=== PATIENT | female | born 1995 | race Caucasian/White ===

== ENCOUNTER 2016-06-05 21:09 | Emergency (ER) | payer MEDICAID ==
[2014-09-10 05:46] VITALS: BMI 33.5
[~2016-06-05 21:09] MED LIST: ACETAMINOPHEN500 M1 PO; CYCLOBENZAPRINE10 MG PO; FERROUS SULFAT325 MG PO; HYDROCODONE-APA1 TAB PO; IBUPROFEN600 MG PO; MOTRIN600 MG PO; PERCOCET 10/3251 TA1 PO; PRENATAL COMPLE1 TAB PO; PRENAVITE1 TAB PO; TRANDATE100 MG PO; ZOFRAN4 MG PO
== END 2016-06-05 23:00 | disposition home or self-care (01) ==
LOC: D.ER 21:09
DX: J06.9 Acute upper respiratory infection, unspecified (principal); F17.200 Nicotine dependence, unspecified, uncomplicated

== ENCOUNTER 2016-06-24 13:37 | Emergency (ER) | payer MEDICAID ==
[2014-09-10 05:46] VITALS: BMI 33.5
== END 2016-06-24 18:31 | disposition home or self-care (01) ==
LOC: D.ER 13:37
DX: J06.9 Acute upper respiratory infection, unspecified (principal); J20.9 Acute bronchitis, unspecified; F17.200 Nicotine dependence, unspecified, uncomplicated

== ENCOUNTER 2016-10-02 20:25 | Emergency (ER) | payer MEDICAID ==
[2014-09-10 05:46] VITALS: BMI 33.5
[2016-10-02 21:26] LABS: BASOPHILS 0.2 % (0-2); EOSINOPHILS 7.7 % (0-7); HEMATOCRIT 38.8 % (36.0-48.0); HEMOGLOBIN 12.9 g/dL (12-16); IMMATURE GRANULOCYTES 0.1 % (0-5); LYMPHOCYTES 24.9 % (15-50); MCH 30.3 pg (26.0-34.0); MCHC 33.2 g/dL (31.0-37.0); MCV 91.1 fL (80.0-100.0); MEAN PLATELET VOLUME 10.3 fL (7.4-10.4); MONOCYTES 4.4 % (2-11); NEUTROPHILS 62.7 % (40-80); PLATELET COUNT 219 10x3/uL (130-400); RBC 4.26 10x6/uL (4.00-5.40); RDW 12.8 % (11.5-14.5); WBC 8.3 10x3/uL (4.8-10.8)
[2016-10-02 21:44] LABS: ALBUMIN 4.1 g/dL (3.4-5.0); ALKALINE PHOSPHATASE 127 U/L (46-116); ALT (SGPT) 20 U/L (10-68); BILIRUBIN - TOTAL 0.25 mg/dL (0.2-1.3); CALC OSMOLALITY 279 mosm/kg (275-300); CALCIUM 8.8 mg/dL (8.5-10.1); CARBON DIOXIDE 22.6 mmol/L (21.0-32.0); CHLORIDE - SERUM 106 mmol/L (98-107); CREATININE - SERUM 0.6 mg/dL (0.6-1.3); GLUCOSE 115 mg/dL (74-106); POTASSIUM - SERUM 3.4 mmol/L (3.5-5.1); PROTEIN - SERUM 7.5 g/dL (6.4-8.2); SODIUM 141 mmol/L (136-145); UREA NITROGEN 6 mg/dL (7-18); eGFR NON AFRICAN AMERICAN > 90 mL/min (90-120)
[2016-10-02 21:49] LABS: TROPONIN-I < 0.017 ng/mL (0.000-0.060)
== END 2016-10-02 22:23 | disposition home or self-care (01) ==
LOC: D.ER 20:25
PROVIDERS: Nurse Practitioner Family
DX: M79.602 Pain in left arm (principal)

== ENCOUNTER 2016-10-21 14:38 | Emergency (ER) | payer MEDICAID ==
[2014-09-10 05:46] VITALS: BMI 33.5
== END 2016-10-21 16:05 | disposition home or self-care (01) ==
LOC: D.ER 14:38
DX: T60.1X1A Toxic effect of halogenated insecticides, accidental (unintentional), initial encounter (principal); F17.200 Nicotine dependence, unspecified, uncomplicated; R11.0 Nausea

== ENCOUNTER 2018-04-20 23:07 | Emergency (ER) | payer SELFPAY ==
[~2018-04-20] VITALS: Ht 162.6 cm; Wt 60.9 kg
[2018-04-20 23:14] VITALS: Ht 162.6 cm; Wt 60.9 kg
[2018-04-21 00:09] LABS: HEMATOCRIT 36.9 % (36.0-48.0); HEMOGLOBIN 12.5 g/dL (12-16); MCHC 33.9 g/dL (31.0-37.0); MCV 88.7 fL (80.0-100.0); MEAN PLATELET VOLUME 10.1 fL (7.4-10.4); NEUTROPHILS 66.3 % (40-80); PLATELET COUNT 204 10x3/uL (130-400); RBC 4.16 10x6/uL (4.00-5.40); RDW 13.3 % (11.5-14.5); WBC 7.3 10x3/uL (4.8-10.8)
[2018-04-21 00:26] LABS: HCG URINE NEGATIVE (NEGATIVE)
[2018-04-21 00:30] LABS: APPEARANCE HAZY (CLEAR); BILIRUBIN NEGATIVE (NEGATIVE); COLOR YELLOW (YELLOW); GLUCOSE NEGATIVE (NEGATIVE); KETONE NEGATIVE (NEGATIVE); NITRITE NEGATIVE (NEGATIVE); PROTEIN NEGATIVE (NEGATIVE); SPECIFIC GRAVITY 1.025 (1.005-1.020); UROBILINOGEN NORMAL (NORMAL)
[2018-04-21 00:35] LABS: ALBUMIN 3.9 g/dL (3.4-5.0); ALKALINE PHOSPHATASE 104 U/L (46-116); ALT (SGPT) 15 U/L (10-68); BILIRUBIN - TOTAL 0.41 mg/dL (0.2-1.3); CALC OSMOLALITY 285 mosm/kg (275-300); CARBON DIOXIDE 25.8 mmol/L (21.0-32.0); CHLORIDE - SERUM 108 mmol/L (98-107); CREATININE - SERUM 0.6 mg/dL (0.6-1.3); GLUCOSE 97 mg/dL (74-106); LIPASE 228 U/L (73-393); POTASSIUM - SERUM 3.9 mmol/L (3.5-5.1); PROTEIN - SERUM 7.2 g/dL (6.4-8.2); SODIUM 143 mmol/L (136-145); TROPONIN-I < 0.017 ng/mL (0.000-0.060); UREA NITROGEN 14 mg/dL (7-18); eGFR NON AFRICAN AMERICAN > 90 mL/min (90-120)
[2018-04-21 00:38] LABS: UDS - AMPHET NEGATIVE QUAL (NEGATIVE); UDS - BARB NEGATIVE QUAL (NEGATIVE); UDS - BENZO NEGATIVE QUAL (NEGATIVE); UDS - COCAINE NEGATIVE QUAL (NEGATIVE); UDS - OPIATE NEGATIVE QUAL (NEGATIVE); UDS - PCP NEGATIVE QUAL (NEGATIVE); UDS - THC POSITIVE QUAL (NEGATIVE)
[2018-04-21 01:14] VITALS: BP 112/74
== END 2018-04-21 01:14 | disposition home or self-care (01) ==
LOC: D.ER 23:07
PROVIDERS: Family Medicine
DX: N91.2 Amenorrhea, unspecified (principal); R11.0 Nausea; R10.32 Left lower quadrant pain; F17.200 Nicotine dependence, unspecified, uncomplicated

== ENCOUNTER 2018-05-24 10:31 | Emergency (ER) | payer MEDICAID ==
[~2018-05-24] VITALS: Ht 162.6 cm; Wt 65.9 kg
[2018-05-24 10:33] VITALS: BP 124/82; Ht 162.6 cm; Wt 65.9 kg
[2018-05-24 11:02] LABS: APPEARANCE HAZY (CLEAR); BILIRUBIN NEGATIVE (NEGATIVE); COLOR YELLOW (YELLOW); GLUCOSE NEGATIVE (NEGATIVE); KETONE NEGATIVE (NEGATIVE); NITRITE NEGATIVE (NEGATIVE); PROTEIN NEGATIVE (NEGATIVE); UROBILINOGEN NORMAL (NORMAL)
[2018-05-24 11:03] LABS: HCG URINE NEGATIVE (NEGATIVE)
[2018-05-24 11:04] LABS: HEMATOCRIT 39.8 % (36.0-48.0); HEMOGLOBIN 13.3 g/dL (12-16); LYMPHOCYTES 25.4 % (15-50); MCH 29.7 pg (26.0-34.0); MCHC 33.4 g/dL (31.0-37.0); MCV 88.8 fL (80.0-100.0); MEAN PLATELET VOLUME 9.3 fL (7.4-10.4); NEUTROPHILS 69.3 % (40-80); PLATELET COUNT 192 10x3/uL (130-400); RBC 4.48 10x6/uL (4.00-5.40); RDW 13.6 % (11.5-14.5); WBC 4.4 10x3/uL (4.8-10.8)
[2018-05-24 11:12] LABS: ALKALINE PHOSPHATASE 124 U/L (46-116); ALT (SGPT) 38 U/L (10-68); BILIRUBIN - TOTAL 0.35 mg/dL (0.2-1.3); CALC OSMOLALITY 279 mosm/kg (275-300); CALCIUM 8.6 mg/dL (8.5-10.1); CARBON DIOXIDE 25.3 mmol/L (21.0-32.0); CHLORIDE - SERUM 104 mmol/L (98-107); CREATININE - SERUM 0.7 mg/dL (0.6-1.3); GLUCOSE 96 mg/dL (74-106); POTASSIUM - SERUM 3.9 mmol/L (3.5-5.1); PROTEIN - SERUM 8.1 g/dL (6.4-8.2); SODIUM 141 mmol/L (136-145); UREA NITROGEN 11 mg/dL (7-18); eGFR NON AFRICAN AMERICAN > 90 mL/min (90-120)
[2018-05-24 11:20] LABS: BACTERIA FEW /hpf (NONE SEEN); CALCIUM OXALATE CRYSTALS 0-5 /hpf (NONE SEEN); EPITHELIAL CELLS 0-5 /hpf (0-5); MUCUS <1+ /lpf (NONE SEEN); RED CELLS - URINE RARE /hpf (0-5); WHITE CELLS - URINE 0-5 /hpf (0-5)
== END 2018-05-24 14:40 | disposition home or self-care (01) ==
LOC: D.ER 10:31
PROVIDERS: Family Medicine
DX: N91.2 Amenorrhea, unspecified (principal); F17.200 Nicotine dependence, unspecified, uncomplicated

== ENCOUNTER 2018-07-04 20:19 | Emergency (ER) | payer MEDICAID ==
[~2018-07-04] VITALS: Ht 162.6 cm; Wt 65.9 kg
[2018-07-04 20:26] VITALS: Ht 162.6 cm; Wt 65.9 kg
[2018-07-04] MEDS ORDERED: TORADOL10 MG PO (21:55)
[2018-07-04 22:19] VITALS: BP 118/73
== END 2018-07-04 22:20 | disposition home or self-care (01) ==
LOC: D.ER 20:19
DX: M94.0 Chondrocostal junction syndrome [Tietze] (principal); F17.210 Nicotine dependence, cigarettes, uncomplicated

== ENCOUNTER 2018-09-02 11:52 | Emergency (ER) | payer MEDICAID ==
[~2018-09-02] VITALS: Ht 162.6 cm; Wt 65.9 kg
[~2018-09-02 11:52] MED LIST changes: +TORADOL10 MG PO
[2018-09-02 12:33] VITALS: Ht 162.6 cm; Wt 65.9 kg
[2018-09-02] MEDS ORDERED: OMNICEF300 MG PO (13:45)
[2018-09-02 14:28] VITALS: BP 109/67
== END 2018-09-02 14:28 | disposition home or self-care (01) ==
LOC: D.ER 11:52
DX: H66.92 Otitis media, unspecified, left ear (principal); J40 Bronchitis, not specified as acute or chronic; J06.9 Acute upper respiratory infection, unspecified

== ENCOUNTER 2019-01-27 07:04 | Emergency (ER) | payer MEDICAID ==
[~2019-01-27] VITALS: Ht 162.6 cm; Wt 65.9 kg
[~2019-01-27 07:04] MED LIST changes: +OMNICEF300 MG PO
[2019-01-27 07:09] VITALS: BP 112/73; Ht 162.6 cm; Wt 65.9 kg
[2019-01-27] MEDS ORDERED: ZPAK PO (07:38)
[2019-01-27] MEDS ORDERED: NAPROSYN500 MG PO (07:38)
== END 2019-01-27 07:44 | disposition home or self-care (01) ==
LOC: D.ER 07:04
DX: J40 Bronchitis, not specified as acute or chronic (principal)

== ENCOUNTER 2019-02-02 11:55 | Emergency (ER) | payer MEDICAID ==
[~2019-02-02] VITALS: Ht 162.6 cm; Wt 65.9 kg
[~2019-02-02 11:55] MED LIST changes: +NAPROSYN500 MG PO; +ZPAK PO
[2019-02-02 12:06] VITALS: Ht 162.6 cm; Wt 65.9 kg
[2019-02-02 12:30] LABS: BASOPHILS 0.6 % (0-2); EOSINOPHILS 5.7 % (0-7); HEMOGLOBIN 12.6 g/dL (12-16); LYMPHOCYTES 30.1 % (15-50); MCH 30.8 pg (26.0-34.0); MCHC 33.2 g/dL (31.0-37.0); MCV 92.9 fL (80.0-100.0); MEAN PLATELET VOLUME 9.9 fL (7.4-10.4); MONOCYTES 8.5 % (2-11); NEUTROPHILS 55.1 % (40-80); PLATELET COUNT 185 10x3/uL (130-400); RBC 4.09 10x6/uL (4.00-5.40); WBC 3.5 10x3/uL (4.8-10.8)
[2019-02-02 12:42] LABS: CALC OSMOLALITY 276 mosm/kg (275-300); CALCIUM 8.8 mg/dL (8.5-10.1); CARBON DIOXIDE 27.5 mmol/L (21.0-32.0); CHLORIDE - SERUM 105 mmol/L (98-107); CREATININE - SERUM 0.7 mg/dL (0.6-1.3); GLUCOSE 90 mg/dL (74-106); POTASSIUM - SERUM 3.3 mmol/L (3.5-5.1); SODIUM 140 mmol/L (136-145); UREA NITROGEN 8 mg/dL (7-18); eGFR NON AFRICAN AMERICAN > 90 mL/min (90-120)
[2019-02-02 12:56] LABS: ALKALINE PHOSPHATASE 102 U/L (46-116); ALT (SGPT) 15 U/L (10-68); BILIRUBIN - TOTAL 0.64 mg/dL (0.2-1.3); PROTEIN - SERUM 7.7 g/dL (6.4-8.2)
[2019-02-02] MEDS ORDERED: MUCINEX DM ER1 EAC1 PO (13:04)
[2019-02-02] MEDS ORDERED: STERAPRED DS 1010 MG PO (13:04)
[2019-02-02 13:31] VITALS: BP 115/64
== END 2019-02-02 13:32 | disposition home or self-care (01) ==
LOC: D.ER 11:55
PROVIDERS: Family Medicine
DX: J02.9 Acute pharyngitis, unspecified (principal); J40 Bronchitis, not specified as acute or chronic; F17.210 Nicotine dependence, cigarettes, uncomplicated

== ENCOUNTER 2019-02-10 16:56 | Emergency (ER) | payer MEDICAID ==
[~2019-02-10] VITALS: Ht 162.6 cm; Wt 65.9 kg
[~2019-02-10 16:56] MED LIST changes: +MUCINEX DM ER1 EAC1 PO; +STERAPRED DS 1010 MG PO
[2019-02-10 17:41] VITALS: Ht 162.6 cm; Wt 65.9 kg
[2019-02-10] MEDS ORDERED: AMOXICILLIN500 M1 PO (17:44)
[2019-02-10 20:25] VITALS: BP 118/68
== END 2019-02-10 20:25 | disposition home or self-care (01) ==
LOC: D.ER 16:56
DX: J02.8 Acute pharyngitis due to other specified organisms (principal)

== ENCOUNTER 2019-05-08 18:57 | Emergency (ER) | payer MEDICAID ==
[~2019-05-08] VITALS: Ht 162.6 cm; Wt 69.1 kg
[~2019-05-08 18:57] MED LIST changes: +AMOXICILLIN500 M1 PO
[2019-05-08 19:10] VITALS: Ht 162.6 cm; Wt 69.1 kg
[2019-05-08] MEDS ORDERED: ATARAX 25 MG TA25 MG PO (19:11)
[2019-05-08] MEDS ORDERED: DEPO SHOT (19:12)
[2019-05-08 19:33] LABS: APPEARANCE CLEAR (CLEAR); BILIRUBIN NEGATIVE (NEGATIVE); COLOR YELLOW (YELLOW); GLUCOSE NEGATIVE (NEGATIVE); HCG URINE NEGATIVE (NEGATIVE); KETONE NEGATIVE (NEGATIVE); NITRITE NEGATIVE (NEGATIVE); PROTEIN NEGATIVE (NEGATIVE); SPECIFIC GRAVITY 1.025 (1.005-1.020); UROBILINOGEN NORMAL (NORMAL)
[2019-05-08 19:53] LABS: BASOPHILS 0.3 % (0-2); EOSINOPHILS 2.5 % (0-7); HEMATOCRIT 38.4 % (36.0-48.0); HEMOGLOBIN 12.9 g/dL (12-16); IMMATURE GRANULOCYTES 0.3 % (0-5); MCH 30.6 pg (26.0-34.0); MCHC 33.6 g/dL (31.0-37.0); MCV 91.2 fL (80.0-100.0); MEAN PLATELET VOLUME 9.8 fL (7.4-10.4); MONOCYTES 8.7 % (2-11); NEUTROPHILS 60.2 % (40-80); PLATELET COUNT 219 10x3/uL (130-400); RBC 4.21 10x6/uL (4.00-5.40); RDW 12.8 % (11.5-14.5); WBC 7.5 10x3/uL (4.8-10.8)
[2019-05-08 20:02] LABS: CALC OSMOLALITY 282 mosm/kg (275-300); CALCIUM 8.6 mg/dL (8.5-10.1); CHLORIDE - SERUM 107 mmol/L (98-107); CREATININE - SERUM 0.7 mg/dL (0.6-1.3); GLUCOSE 92 mg/dL (74-106); POTASSIUM - SERUM 4.1 mmol/L (3.5-5.1); SODIUM 142 mmol/L (136-145); UREA NITROGEN 12 mg/dL (7-18); eGFR NON AFRICAN AMERICAN > 90 mL/min (90-120)
[2019-05-08 20:08] LABS: ALBUMIN 3.9 g/dL (3.4-5.0); ALKALINE PHOSPHATASE 102 U/L (30-120); ALT (SGPT) 34 U/L (10-68); AMYLASE - SERUM 47 U/L (25-115); BILIRUBIN - TOTAL 0.53 mg/dL (0.2-1.3); LIPASE 166 U/L (73-393); PROTEIN - SERUM 7.6 g/dL (6.4-8.2)
[2019-05-08 22:51] VITALS: BP 121/73
== END 2019-05-08 22:51 | disposition home or self-care (01) ==
LOC: D.ER 18:57
PROVIDERS: Family Medicine
DX: R10.30 Lower abdominal pain, unspecified (principal); R10.2 Pelvic and perineal pain

== ENCOUNTER 2019-07-31 16:36 | Emergency (ER) | payer MEDICAID ==
[~2019-07-31] VITALS: Ht 162.6 cm; Wt 77.3 kg
[~2019-07-31 16:36] MED LIST changes: +ATARAX 25 MG TA25 MG PO; +DEPO SHOT
[2019-07-31 16:51] VITALS: Ht 162.6 cm; Wt 77.3 kg
[2019-07-31 17:15] LABS: BASOPHILS 0.3 % (0-2); EOSINOPHILS 2.9 % (0-7); HEMATOCRIT 38.5 % (36.0-48.0); HEMOGLOBIN 12.6 g/dL (12-16); IMMATURE GRANULOCYTES 0.1 % (0-5); LYMPHOCYTES 20.4 % (15-50); MCH 30.1 pg (26.0-34.0); MCHC 32.7 g/dL (31.0-37.0); MCV 92.1 fL (80.0-100.0); MONOCYTES 6.8 % (2-11); NEUTROPHILS 69.5 % (40-80); PLATELET COUNT 231 10x3/uL (130-400); RBC 4.18 10x6/uL (4.00-5.40); RDW 12.4 % (11.5-14.5); WBC 7.9 10x3/uL (4.8-10.8)
[2019-07-31 17:22] LABS: CALC OSMOLALITY 279 mosm/kg (275-300); CALCIUM 8.8 mg/dL (8.5-10.1); CARBON DIOXIDE 23.2 mmol/L (21.0-32.0); CHLORIDE - SERUM 106 mmol/L (98-107); CREATININE - SERUM 0.8 mg/dL (0.6-1.3); GLUCOSE 102 mg/dL (74-106); POTASSIUM - SERUM 4.1 mmol/L (3.5-5.1); SODIUM 140 mmol/L (136-145); UREA NITROGEN 14 mg/dL (7-18); eGFR NON AFRICAN AMERICAN > 90 mL/min (90-120)
[2019-07-31 17:35] LABS: ALBUMIN 3.8 g/dL (3.4-5.0); ALKALINE PHOSPHATASE 94 U/L (30-120); ALT (SGPT) 26 U/L (10-68); BILIRUBIN - TOTAL 0.53 mg/dL (0.2-1.3); PRO BNP 12 pg/mL (0-125); PROTEIN - SERUM 7.6 g/dL (6.4-8.2)
[2019-07-31 17:39] LABS: BILIRUBIN NEGATIVE (NEGATIVE); GLUCOSE NEGATIVE (NEGATIVE); KETONE NEGATIVE (NEGATIVE); NITRITE NEGATIVE (NEGATIVE); SPECIFIC GRAVITY 1.005 (1.005-1.020); UROBILINOGEN NORMAL (NORMAL)
[2019-07-31 17:43] LABS: HCG URINE NEGATIVE (NEGATIVE)
[2019-07-31] MEDS ORDERED: ZPAK PO (18:08)
[2019-07-31] MEDS ORDERED: STERAPRED DS 1010 MG PO (18:08)
[2019-07-31 18:19] VITALS: BP 130/79
== END 2019-07-31 18:19 | disposition home or self-care (01) ==
LOC: D.ER 16:36
PROVIDERS: Family Medicine
DX: J40 Bronchitis, not specified as acute or chronic (principal); R06.09 Other forms of dyspnea; Z72.0 Tobacco use

== ENCOUNTER 2019-09-07 10:55 | Emergency (ER) | payer MEDICAID ==
[~2019-09-07] VITALS: Ht 162.6 cm; Wt 80.5 kg
[2019-09-07 10:59] VITALS: Ht 162.6 cm; Wt 80.5 kg
[2019-09-07] MEDS ORDERED: CYCLOBENZAPRINE5 MG PO (11:16)
[2019-09-07 11:19] LABS: HCG URINE NEGATIVE (NEGATIVE)
[2019-09-07 12:00] VITALS: BP 118/69
== END 2019-09-07 12:00 | disposition home or self-care (01) ==
LOC: D.ER 10:55
PROVIDERS: Emergency Medicine
DX: M62.838 Other muscle spasm (principal); M54.2 Cervicalgia; M25.512 Pain in left shoulder

== ENCOUNTER 2019-12-06 14:08 | Emergency (ER) | payer MEDICAID ==
[~2019-12-06] VITALS: Ht 162.6 cm; Wt 85.9 kg
[~2019-12-06 14:08] MED LIST changes: +CYCLOBENZAPRINE5 MG PO
[2019-12-06 14:13] VITALS: Ht 162.6 cm; Wt 85.9 kg
[2019-12-06 15:03] LABS: BASOPHILS 0.1 % (0-2); EOSINOPHILS 0.1 % (0-7); HEMATOCRIT 38.9 % (36.0-48.0); HEMOGLOBIN 12.9 g/dL (12-16); IMMATURE GRANULOCYTES 0.2 % (0-5); MCH 30.7 pg (26.0-34.0); MCHC 33.2 g/dL (31.0-37.0); MCV 92.6 fL (80.0-100.0); MONOCYTES 4.3 % (2-11); NEUTROPHILS 87.3 % (40-80); PLATELET COUNT 251 10x3/uL (130-400); RDW 13.3 % (11.5-14.5); WBC 13.8 10x3/uL (4.8-10.8)
[2019-12-06 15:18] LABS: CALC OSMOLALITY 282 mosm/kg (275-300); CALCIUM 8.9 mg/dL (8.5-10.1); CARBON DIOXIDE 24.9 mmol/L (21.0-32.0); CHLORIDE - SERUM 107 mmol/L (98-107); CREATININE - SERUM 0.8 mg/dL (0.6-1.3); GLUCOSE 116 mg/dL (74-106); POTASSIUM - SERUM 3.7 mmol/L (3.5-5.1); SODIUM 142 mmol/L (136-145); UREA NITROGEN 10 mg/dL (7-18); eGFR NON AFRICAN AMERICAN > 90 mL/min (90-120)
[2019-12-06 15:23] LABS: ALBUMIN 3.6 g/dL (3.4-5.0); ALKALINE PHOSPHATASE 109 U/L (30-120); ALT (SGPT) 24 U/L (10-68); BILIRUBIN - TOTAL 0.27 mg/dL (0.2-1.3); PROTEIN - SERUM 7.3 g/dL (6.4-8.2)
[2019-12-06] MEDS ORDERED: FLUTICASONE PRO16 GM NASAL (17:05)
[2019-12-06] MEDS ORDERED: MUCINEX DM ER1 EAC1 PO (17:05)
[2019-12-06] MEDS ORDERED: ZYRTEC10 MG PO (17:05)
[2019-12-06 17:12] VITALS: BP 122/59
[2019-12-06 17:16] LABS: APTT 27.2 SECONDS (22.8-39.4); INR 1.05 (0.85-1.17); PROTIME 13.6 SECONDS (11.6-15.0)
[2019-12-06 17:17] LABS: D-DIMER-QUANTITATIVE < 0.27 ug/mLFEU (0.20-0.54)
[2019-12-06 17:46] LABS: CKMB 0.3 U/L (0.0-3.6); CREATINE KINASE 51 UL (21-215); PRO BNP 90 pg/mL (0-125); TROPONIN-I < 0.017 ng/mL (0.000-0.060)
== END 2019-12-06 17:13 | disposition home or self-care (01) ==
LOC: D.ER 14:08
PROVIDERS: Family Medicine
DX: J06.9 Acute upper respiratory infection, unspecified (principal); R05 Cough; R06.02 Shortness of breath